=== PATIENT | female | born 1960 | race American Indian/Alaskan Native ===

== ENCOUNTER 2018-03-11 23:21 | Emergency (ER) | payer MEDICAID ==
--- NOTE | 2018-03-11 23:39 | C.PDOC ---
History Of Present Illness 57 year old female presents to the ED c/o SOB, throat tightness that started today after taking OTC gas relief medication. Patient able to speak in complete sentences. Patient denies fever, chills, nausea, vomit, diarrhea, cough, tongue swelling, facial swelling. Time Seen by Provider: 03/11/18 23:39 Chief Complaint (Nursing): Respiratory Distress History Per: Patient History/Exam Limitations: no limitations Onset/Duration Of Symptoms: Hrs Current Symptoms Are (Timing): Still Present Possible Cause: Medication Associated Symptoms: Skin Rash Home/EMS Treatment: None Recent travel outside of the [place]: No Additional History Per: Patient Past Medical History Reviewed: Historical Data, Nursing Documentation, Vital Signs Vital Signs: Last Vital Signs Temp 98.4 F 03/11/18 23:25 Pulse 95 H 03/11/18 23:25 Resp 24 03/11/18 23:25 BP 196/101 H 03/11/18 23:25 Pulse Ox 100 03/11/18 23:25 - Medical History PMH: HTN Surgical History: No Surg Hx Family History: States: Unknown Family Hx - Social History Hx Alcohol Use: No Hx Substance Use: No - Immunization History Hx Tetanus Toxoid Vaccination: No Hx Influenza Vaccination: No Hx Pneumococcal Vaccination: No Review Of Systems Constitutional: Negative for: Fever, Chills ENT: Positive for: Throat Swelling. Negative for: Mouth Swelling Cardiovascular: Negative for: Chest Pain Respiratory: Positive for: Shortness of Breath, Wheezing. Negative for: Cough, Sputum Gastrointestinal: Negative for: Nausea, Vomiting, Abdominal Pain Skin: Positive for: Rash Neurological: Negative for: Weakness, Numbness, Headache Physical Exam - Physical Exam Appears: Non-toxic, No Acute Distress Skin: Warm, Dry, Rash (diffuse urticarial rash) Head: Normacephalic Eye(s): bilateral: Normal Inspection Oral Mucosa: Moist Tongue: No Swelling Lips: No Swelling Throat: No Erythema, No Exudate Neck: Supple Chest: Symmetrical Respiratory: No Rales, No Rhonchi, Wheezing (few ) Gastrointestinal/Abdominal: Soft, No Tenderness, No Guarding, No Rebound Extremity: Bilateral: Atraumatic, Normal Color And Temperature, Normal ROM Neurological/Psych: Oriented x3, Normal Speech, Normal Cognition Gait: Steady ED Course And Treatment O2 Sat by Pulse Oximetry: 100 (ON RA) Pulse Ox Interpretation: Normal Progress Note: Plan: - Vinnyryl 50 mg IVP. - Pepcid 20 mg IVP. - Solumedrol 125 mg IVP. - IV fluids. 3:39 AM Pt speaking in complete sentences. tolerating po. feels fine and wants to go home Reevaluation Time: 03:39 Reassessment Condition: Improved Critical Care Time - Critical Care Note Total Time (in mins): 30 Documented critical care: time excludes all time spent performing seperately billable procedures. Disposition Counseled Patient/Family Regarding: Studies Performed, Diagnosis, Need For Followup - Disposition Referrals: Sadia Peralta MD [Non-Staff] - Disposition: HOME/ ROUTINE Disposition Time: 23:39 Condition: FAIR Additional Instructions: Please return if symptoms recur. Also usebenadryl, pepcid and claritin Prescriptions: Epinephrine [Epipen] 0.3 mg IJ ONCE PRN #2 auto.injct PRN Reason: Anaphylaxis predniSONE [predniSONE Tab] 20 mg PO DAILY #5 tab Instructions: Adverse Drug Reactions, Adult (DC) Forms: [employer] (Estonian) - Clinical Impression Clinical Impression: Allergic reaction - Scribe Statement The provider has reviewed the documentation as recorded by the Scribe Theodore Oliveros All medical record entries made by the Scribe were at my direction and personally dictated by me. I have reviewed the chart and agree that the record accurately reflects my personal performance of the history, physical exam, medical decision making, and the department course for this patient. I have also personally directed, reviewed, and agree with the discharge instructions and disposition.
[2018-03-11] MEDS ORDERED: Sodium Chloride 0.9% 1,000 ML ONE (23:42)
[2018-03-11] MEDS ORDERED: DiphenhydrAMINE 50 mg/ml Inj ONE (23:42)
[2018-03-11] MEDS ORDERED: Sodium Chloride 0.9% 1,000 ML IV ONE (23:46)
[2018-03-11] MEDS ORDERED: DiphenhydrAMINE 50 mg/ml Inj IVP STA (23:46)
[2018-03-11] MEDS ORDERED: MethylPREDNISolone 40 mg Vial IVP STA (23:47)
[2018-03-12 03:54] VITALS: BP 158/82; PULSE 80; RESP 20; TEMP 98.5; O2SAT 97
== END 2018-03-12 03:58 | disposition home or self-care (01) ==
LOC: C.ER 23:21
DX: T78.40XA Allergy, unspecified, initial encounter (principal)
CPT/HCPCS: 96361; 96374; 96375; 99285; J1200; J2920; J7030